=== PATIENT | female | born 1995 | race Caucasian/White ===

== ENCOUNTER 2024-12-15 17:59 | Emergency (ER) | payer OTHER ==
[~2024-12-15] VITALS: Ht 167.6 cm; Wt 72.6 kg
[2024-12-15] MEDS ORDERED: NALO4SPR BNOSTRILS (20:59)
[2024-12-15 21:06] VITALS: BP 139/79; TEMP 98.2; O2SAT 99
== END 2024-12-15 21:07 | disposition home or self-care (01) ==
LOC: ER 18:50
DX: T40.601A Poisoning by unspecified narcotics, accidental (unintentional), initial encounter (principal); Y92.89 Other specified places as the place of occurrence of the external cause; F20.9 Schizophrenia, unspecified